=== PATIENT | female | born 1980 | race African-American/Black ===

== ENCOUNTER 2020-05-14 13:13 | Emergency (ER) | payer SELFPAY ==
[2020-05-14 13:44] LABS: Absolute Lymphocytes (CBC) 2.6 K/uL (0.7-4.9); Basophils % 1.3 % (0-1.3); Hematocrit 35.8 % (36.0-45.0); Lymphocytes % 26.4 % (15.3-44.8); MPV 8.2 fL (7.6-11.3); RBC Red Blood Cell Count 4.56 M/uL (3.86-4.86)
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
--- NOTE | 2020-05-14 14:43 | RAD REPORT ---
EXAM DESCRIPTION: RAD - Forearm Right - 05/14/2020 2:24 pm CLINICAL HISTORY: Right arm pain FINDINGS: Cortical irregularity involves the proximal ulna at the elbow. Dedicated three-view plain- film series recommended for further evaluation. No fracture involving mid or distal forearm seen
[2020-05-14 14:49] LABS: Potassium 3.8 mmol/L (3.5-5.1)
[2020-05-14] MEDS ORDERED: LIDOCAINE 1% MPF 5 ML VIAL ONE (15:08)
--- NOTE | 2020-05-14 15:27 | RAD REPORT ---
EXAM DESCRIPTION: RAD - Elbow Right 3 View - 05/14/2020 3:07 pm CLINICAL HISTORY: Elbow pain FINDINGS: The lateral view is suboptimal as the elbow is not flexed at 90 degrees. 7 millimeter bony density lies along anterior aspect of the elbow likely an avulsion fracture from th e coronoid process of the ulna No dislocation
[2020-05-14] MEDS ORDERED: DERMABOND SKIN ADHESIVE TOP ONE (15:32)
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
[2020-05-19 13:11] VITALS: BP 147/95; TEMP 97.5; O2SAT 98
== END 2020-05-14 17:05 | disposition home or self-care (01) ==
LOC: ER 13:13
PROC: 0JQ10ZZ Repair Face Subcutaneous Tissue and Fascia, Open Approach (ICD-10-PCS; principal; 2020-05-14)
PROC: 2W3CX1Z Immobilization of Right Lower Arm using Splint (ICD-10-PCS; 2020-05-14)
DX: S01.81XA Laceration without foreign body of other part of head, initial encounter (principal); S52.201A Unspecified fracture of shaft of right ulna, initial encounter for closed fracture; V43.53XA Car driver injured in collision with pick-up truck in traffic accident, initial encounter; F17.210 Nicotine dependence, cigarettes, uncomplicated
CPT/HCPCS: 36415; 70450; 71260; 72125; 74177; 80048; 82565; 85025; 99285; Q9967

== ENCOUNTER 2021-06-11 15:42 | Emergency (ER) | payer SELFPAY ==
[2021-06-11 16:34] LABS: Urine Blood Negative (Negative); Urine Glucose 2+ (Negative); Urine Protein 1+ (Negative); Urine Specific Gravity >=1.030 (1.005-1.030)
[2021-06-11 16:36] LABS: Absolute Lymphocytes (CBC) 2.9 K/uL (0.7-4.9); Basophils % 1.3 % (0-1.3); Hematocrit 37.5 % (36.0-45.0); Lymphocytes % 37.4 % (15.3-44.8); RBC Red Blood Cell Count 4.64 M/uL (3.86-4.86)
[2021-06-11 16:51] LABS: Bilirubin Direct 0.2 mg/dL (0-0.2); Bilirubin Total 0.3 mg/dL (0.2-1.0); Potassium 3.7 mmol/L (3.5-5.1); Protein, Total 8.4 g/dL (6.4-8.2)
[2021-06-11] MEDS ORDERED: MORPHINE 4 MG/ML SYR ONE (16:53)
[2021-06-11] MEDS ORDERED: ONDANSETRON 4 MG/2 ML VIAL ONE (16:53)
--- NOTE | 2021-06-11 16:58 | RAD REPORT ---
EXAM DESCRIPTION: US - Abdomen Exam Limited - 06/11/2021 4:48 pm CLINICAL HISTORY: upper abdomen pain Right upper quadrant pain COMPARISON: No comparisons FINDINGS: The gallbladder demonstrates no gallstones. No pericholecystic fluid or gallbladder wall t hickening. The common bile duct is normal measuring 5 mm. The liver demonstrates fatty liver. IMPRESSION: Fatty liver is present. Negative gallbladder/ biliary tree findings.
[2021-06-11 17:00] LABS: Urine Specific Gravity/Preg >1.030 (1.005-1.030)
[2021-06-11 17:02] LABS: Urine Amorphous Sediment 4+ /HPF (NONE SEEN); Urine Bacteria <20 /HPF (<20); Urine RBC NONE SEEN /HPF (NONE SEEN)
[2021-06-11] MEDS ORDERED: NA CHLORIDE 0.9% 1,000 ML ONE (17:45)
--- NOTE | 2021-06-11 18:01 | RAD REPORT ---
EXAM DESCRIPTION: CTAbdomen Pelvis W Contrast - 06/11/2021 5:55 pm CLINICAL HISTORY: Abdominal pain. ABD PAIN COMPARISON: No comparisons TECHNIQUE: Biphasic CT imaging of the abdomen and pelvis was performed with 100 ml non-ionic IV cont rast. All CT scans are performed using dose optimization technique as appropriate and may include automated exposure control or mA/KV adjustment according to patient size. FINDINGS: The lung bases are clear. The liver is mildly enlarged and demonstrates a diffuse fatty infiltration pattern. The spleen, pancr eas, adrenal glands and kidneys are within normal limits. No bowel obstruction, free air, free fluid or abscess. The appendix is normal. No evidence of signi ficant lymphadenopathy. No suspicious bony findings. IMPRESSION: Hepatomegaly with diffuse fatty infiltration of the liver noted.
--- NOTE | 2021-06-11 18:20 | ER ---
Nurse's Notes [facility] Name: Viktor Sagastume Age: 40 yrs Sex: Female : 1980 Arrival Date: 06/11/2021 Time: 15:45 Bed 20 Private MD: Diagnosis: Upper abdominal pain, unspecified;Hyperglycemia, unspecified Presentation: 06/11 15:48 Chief complaint: Patient states: "I am having pain in my left upper side on my jd3 stomach.". Coronavirus screen: At this time, the client does not indicate any symptoms associated with coronavirus-19. Ebola Screen: Patient negative for fever greater than or equal to 101.5 degrees Fahrenheit, and additional compatible Ebola Virus Disease symptoms. Initial Sepsis Screen: Does the patient meet any 2 criteria? No. Patient's initial sepsis screen is negative. Does the patient have a suspected source of infection? No. Patient's initial sepsis screen is negative. Risk Assessment: Do you want to hurt yourself or someone else? Patient reports no desire to harm self or others. Onset of symptoms was June 11, 2021. 15:48 Method Of Arrival: Ambulatory jd3 15:48 Acuity: MARIO 3 jd3 19:18 Note AA\\T\\Ox3; denies any complaints \\T\\ present time; reports feeling better; VSS. cc 4 Triage Assessment: 19:18 General: Appears in no apparent distress. Behavior is calm, cooperative. Pain: Denies cc4 pain. 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 Date received December 2020. - Social history:: Smoking status: Patient denies any tobacco usage or history of. Screenin:18 Abuse screen: Denies threats or abuse. Nutritional screening: No deficits noted. cc4 Tuberculosis screening: No symptoms or risk factors identified. Fall Risk None identified. Assessment: 15:57 General: Appears uncomfortable. Pain: Complains of pain in abdomen RUQ pain that tc5 radiates to the left pt rates the pain 7/10 been going on for about 3 weeks now. 15:58 GI: No deficits noted. : No deficits noted. tc5 19:18 Reassessment: Patient appears in no apparent distress at this time. Patient states cc4 feeling better. GI: 19:18 GI: Abd is soft and non tender obese. cc4 Vital Signs: 15:49 BP 152 / 87; Pulse 103; Resp 16 S; Temp 98.2(TE); Pulse Ox 100% on R/A; Weight 136.08 jd3 kg (R); Height 5 ft. 4 in. (162.56 cm) (R); Pain 7/10; 17:27 BP 163 / 108; Pulse 69; Resp 20; Pulse Ox 100% ; Pain 0/10; tc5 19:18 BP 140 / 89; Pulse 90; Resp 20; Temp 98.3(O); Pulse Ox 100% ; cc4 15:49 Body Mass Index 51.50 (136.08 kg, 162.56 cm) jd3 ED Course: 15:45 Patient arrived in ED. am2 15:49 Triage completed. jd3 15:50 Arm band placed on. jd3 15:51 Rene Bello PA is PHCP. cp 15:51 Erik Meraz MD is Attending Physician. cp 15:57 Sakina Clement, MARY ELLEN is Primary Nurse. tc5 16:25 Initial lab(s) drawn, by me, sent to lab. Urine collected: clean catch specimen, kj1 cloudy. Inserted saline lock: 20 gauge in right antecubital area, using aseptic technique. Blood collected. 16:47 US Abdomen Limited: liver/gallbladder In Process Unspecified. EDMS 17:55 CT Abd/Pelvis - IV Contrast Only In Process Unspecified. EDMS 19:18 Patient has correct armband on for positive identification. Side rails up X2. cc4 19:18 IV discontinued, intact, bleeding controlled, No redness/swelling at site. Pressure cc4 dressing applied. 19:18 No provider procedures requiring assistance completed. cc4 Administered Medications: 19:46 Discontinued: NS 0.9% 1000 ml IV at 1 bolus Per protocol; 1000 mL bolus cc4 16:36 Drug: morphine 4 mg Route: IVP; Site: right antecubital; tc5 19:18 Follow up: Response: No adverse reaction; Marked relief of symptoms; Pain is decreased cc4 16:36 Drug: Zofran (Ondansetron) 4 mg Route: IVP; Site: right antecubital; tc5 19:18 Follow up: Response: No adverse reaction; Marked relief of symptoms cc4 17:23 Drug: NS 0.9% 1000 ml Route: IV; Rate: 1 bolus; Site: right antecubital; tc5 Outcome: 18:19 Discharge ordered by MD. cp 19:18 Discharged to home ambulatory. cc4 19:18 Condition: good 19:18 Discharge instructions given to patient, Instructed on discharge instructions, follow up and referral plans. Demonstrated understanding of instructions, follow-up care, medications. 19:47 Patient left the ED. cc4 Signatures: Dispatcher [employer] EDMS Rene Bello PA PA cp Moreno, Amanda am2 Royce Wilder RN RN jd3 Aleena Evans kj1 Celine Salinas RN RN cc4 Sakina Clement RN RN tc5 Corrections: (The following items were deleted from the chart) 15:50 15:49 Pulse 103bpm; Resp 16bpm; Spontaneous; Pulse Ox 100% RA; Temp 98.2F Temporal; jd3 136.08 kg Reported; Height 5 ft. 4 in. Reported; BMI: 51.4; Pain 7/10; jd3 19:44 19:40 Abuse screen: Denies threats or abuse. cc4 cc4
--- NOTE | 2021-06-11 18:20 | EDPHYS ---
Physician Documentation [facility] Name: Viktor Sagastume Age: 40 yrs Sex: Female : 1980 Arrival Date: 06/11/2021 Time: 15:45 Bed 20 Private MD: ED Physician Erik Meraz HPI: 06/11 16:10 This 40 yrs old Black Female presents to ER via Ambulatory with complaints of Abdominal cp Pain - LUQ. 16:10 The patient presents with abdominal pain in the left upper quadrant. Onset: The cp symptoms/episode began/occurred today. The symptoms do not radiate. Associated signs and symptoms: Pertinent negatives: anorexia, chest pain, constipation, diarrhea, dysuria, fever, vomiting. The symptoms are described as intermittent. Pain started after drinking soda. 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 Date received December 2020. - Social history:: Smoking status: Patient denies any tobacco usage or history of. ROS: 16:15 Constitutional: Negative for body aches, chills, fever, poor PO intake. cp 16:15 Eyes: Negative for injury, pain, redness, and discharge. cp 16:15 ENT: Negative for ear pain, sore throat, difficulty swallowing, difficulty handling secretions. 16:15 Cardiovascular: Negative for chest pain, palpitations. 16:15 Respiratory: Positive for cough, with no reported sputum, Negative for shortness of breath, wheezing. 16:15 Abdomen/GI: Positive for abdominal pain, of the anterior aspect of left lateral abdomen and left upper quadrant, Negative for vomiting, diarrhea, constipation, anorexia, black/tarry stool, rectal bleeding. 16:15 Back: Negative for pain at rest, pain with movement, radiated pain. 16:15 : Positive for urinary frequency, Negative for hematuria, burning with urination. 16:15 Skin: Negative for cellulitis, rash. 16:15 Neuro: Negative for altered mental status, headache, weakness. 16:15 All other systems are negative. Exam: 16:25 Constitutional: The patient appears in no acute distress, alert, awake, cp non-diaphoretic, non-toxic, well developed, well nourished, obese. 16:25 Head/Face: Normocephalic, atraumatic. cp 16:25 Eyes: Periorbital structures: appear normal, Conjunctiva: normal, no exudate, no injection, Sclera: no appreciated abnormality, Lids and lashes: appear normal, bilaterally. 16:25 ENT: External ear(s): are unremarkable, Nose: is normal, Mouth: Lips: moist, Oral mucosa: moist, Posterior pharynx: Airway: no evidence of obstruction, patent. 16:25 Chest/axilla: Inspection: normal, Palpation: is normal, no crepitus, no tenderness. 16:25 Cardiovascular: Rate: tachycardic, Rhythm: regular. 16:25 Respiratory: the patient does not display signs of respiratory distress, Respirations: normal, no use of accessory muscles, no retractions, labored breathing, is not present, Breath sounds: are clear throughout, no decreased breath sounds, no stridor, no wheezing. 16:25 Abdomen/GI: Inspection: obese Bowel sounds: active, all quadrants, Palpation: soft, in all quadrants, mild abdominal tenderness, in the anterior aspect of left lateral abdomen and left upper quadrant, rebound tenderness, is not appreciated, involuntary guarding, is not appreciated. 16:25 Back: pain, is absent, ROM is normal. Vital Signs: 15:49 BP 152 / 87; Pulse 103; Resp 16 S; Temp 98.2(TE); Pulse Ox 100% on R/A; Weight 136.08 jd3 kg (R); Height 5 ft. 4 in. (162.56 cm) (R); Pain 7/10; 17:27 BP 163 / 108; Pulse 69; Resp 20; Pulse Ox 100% ; Pain 0/10; tc5 19:18 BP 140 / 89; Pulse 90; Resp 20; Temp 98.3(O); Pulse Ox 100% ; cc4 15:49 Body Mass Index 51.50 (136.08 kg, 162.56 cm) jd3 MDM: 15:56 Patient medically screened. cp 17:00 Differential diagnosis: cholecystitis, Cholelithiasis, pancreatitis, Peptic Ulcer cp Disease, Perf. Duodenal Ulcer, Perf. Gastric Ulcer, Ureterolithiasis, urinary tract infection. 18:15 Data reviewed: vital signs, nurses notes, lab test result(s), radiologic studies, CT cp scan, ultrasound. 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 18:19 Response to treatment: the patient's symptoms have markedly improved after treatment, cp and as a result, I will discharge patient. Special discussion: Based on the patient's Hx, exam, and Dx evaluation, there is no indication for emergent surgery or inpatient Tx. It is understood by the patient/guardian that if the Sx's persist or worsen they need to return immediately for re-evaluation. 06/11 16:09 Order name: Basic Metabolic Panel; Complete Time: 16:59 06/11 17:00 Interpretation: Normal except: GLUC 271; GFR 89. 06/11 16:09 Order name: CBC with Diff; Complete Time: 16:59 06/11 17:00 Interpretation: Normal except: MCH 26.6; PLT 445; RDW 16.9. 06/11 16:09 Order name: Hepatic Function; Complete Time: 16:59 06/11 17:00 Interpretation: Normal except: AST 55; ALT 118; ALK 186; TP 8.4; GLOB 4.4; A/G 0.9. 06/11 16:09 Order name: Lipase; Complete Time: 16:59 06/11 16:09 Order name: Urine Microscopic Only; Complete Time: 17:06 06/11 17:06 Interpretation: Normal except: AMORPH 4+. 06/11 16:34 Order name: Urine Dipstick-Ancillary; Complete Time: 16:59 EDMS 06/11 17:01 Interpretation: Normal except: UGLUC 2+; UKET Trace; UPROT 1+. 06/11 16:09 Order name: IV Saline Lock; Complete Time: 16:35 06/11 16:09 Order name: Labs collected and sent; Complete Time: 16:35 06/11 16:09 Order name: US Abdomen Limited: liver/gallbladder; Complete Time: 16:59 06/11 17:02 Interpretation: Report reviewed. 06/11 16:53 Order name: Urine --Ancillary (enter results); Complete Time: 17:01 dh3 06/11 18:03 Interpretation: Abnormal: USPGR PREG >1.030. 06/11 17:01 Order name: CT Abd/Pelvis - IV Contrast Only; Complete Time: 18:03 06/11 16:09 Order name: Urine Dipstick-Ancillary (obtain specimen); Complete Time: 16:35 06/11 16:09 Order name: Urine Test (obtain specimen); Complete Time: 16:36 06/11 16:09 Order name: NPO cp Administered Medications: 19:46 Discontinued: NS 0.9% 1000 ml IV at 1 bolus Per protocol; 1000 mL bolus cc4 16:36 Drug: morphine 4 mg Route: IVP; Site: right antecubital; tc5 19:18 Follow up: Response: No adverse reaction; Marked relief of symptoms; Pain is decreased cc4 16:36 Drug: Zofran (Ondansetron) 4 mg Route: IVP; Site: right antecubital; tc5 19:18 Follow up: Response: No adverse reaction; Marked relief of symptoms cc4 17:23 Drug: NS 0.9% 1000 ml Route: IV; Rate: 1 bolus; Site: right antecubital; tc5 Disposition: 21:17 Co-signature as Attending Physician, Erik Meraz MD I agree with the assessment and kdr plan of care. Disposition Summary: 06/11/21 18:19 Discharge Ordered Location: Home cp Problem: new cp Symptoms: have improved cp Condition: Stable cp Diagnosis - Upper abdominal pain, unspecified cp - Hyperglycemia, unspecified cp Followup: cp - With: Private Physician - When: 1 - 2 days - Reason: Recheck today's complaints Discharge Instructions: - Discharge Summary Sheet cp - Abdominal Pain, Adult cp - Hyperglycemia cp - Blood Glucose Monitoring, Adult cp Forms: - Medication Reconciliation Form cp - Thank You Letter cp - Antibiotic Education cp - Prescription Opioid Use cp Prescriptions: - dicyclomine 20 mg Oral Tablet - take 1 tablet by ORAL route 4 times per day As needed; 30 tablet; Refills: 0, cp Product Selection Permitted - Zofran 4 mg Oral Tablet - take 1 tablet by ORAL route every 12 hours As needed; 20 tablet; Refills: 0, cp Product Selection Permitted Signatures: Dispatcher [employer] Erik Sanchez MD MD kdr Rene Bello PA PA cp Davies, Jonathon, RN RN jd3 Sakina Clement RN RN tc5 Celine Salinas RN cc4
[2021-06-11 19:56] VITALS: O2SAT 100
[2021-06-11 19:59] VITALS: BP 140/89; TEMP 98.3
== END 2021-06-11 19:47 | disposition home or self-care (01) ==
LOC: ER 15:42
DX: R73.9 Hyperglycemia, unspecified (principal)
CPT/HCPCS: 36415; 74177; 76705; 80048; 80076; 81003; 81015; 81025; 83690; 85025; 96374; 96375; 99284; J2405; J7030; Q9967